=== PATIENT | female | born 1965 | race Hispanic/Latino ===

== ENCOUNTER 2018-01-27 22:00 | Emergency (ER) | payer MEDICAID ==
[2018-01-27 22:01] VITALS: BMI 25.7
[2018-01-27 22:13] VITALS: BP 123/79; PULSE 67; RESP 20; TEMP 98.2; O2SAT 100
[2018-01-27] MEDS ORDERED: Lidocaine 5% Patch TD STA (23:23)
[2018-01-27] MEDS ORDERED: Lidocaine 5% Patch TD ONE (23:29)
--- NOTE | 2018-01-28 00:02 | C.PDOC ---
History Of Present Illness 52 year old female with PMHx of back problems, muscle and nerve damage form the waist down presents to the ED c/o constipation and abdominal pain. Patient states she has not had a bowel movement since Thursday. Patient states that due to her pain and not being able to follow with pain management she has been self medicating. 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 Patient is also requesting detox, states she wants to stop using. Patient denies fever, chills, nausea, vomit, diarrhea, weakness, numbness. Time Seen by Provider: 01/27/18 22:39 Chief Complaint (Nursing): Abdominal Pain History Per: Patient History/Exam Limitations: no limitations Onset/Duration Of Symptoms: Days Current Symptoms Are (Timing): Still Present Location Of Pain/Discomfort: Diffuse Radiation Of Pain To:: None Quality Of Discomfort: "Pain" Associated Symptoms: Constipation. denies: Nausea, Vomiting, Diarrhea, Loss Of Appetite Alleviating Factors: None Last Bowel Movement: Days Ago (Thursday) Recent travel outside of the [place]: No Additional History Per: Patient Abnormal Vaginal Bleeding: No Past Medical History Reviewed: Historical Data, Nursing Documentation, Vital Signs Vital Signs: Last Vital Signs Temp 98.2 F 01/27/18 22:11 Pulse 67 01/27/18 22:11 Resp 20 01/27/18 22:11 BP 123/79 01/27/18 22:11 Pulse Ox 100 01/28/18 00:59 - Medical History PMH: Arthritis, Asthma, Back Problems Other Surgeries: back surgery 2002 Family History: States: Unknown Family Hx - Social History Hx Tobacco Use: Yes Hx Alcohol Use: No Hx Substance Use: Yes (HEROIN) - Immunization History Hx Tetanus Toxoid Vaccination: No Hx Influenza Vaccination: No Hx Pneumococcal Vaccination: No Review Of Systems Constitutional: Negative for: Fever, Chills Respiratory: Negative for: Cough, Shortness of Breath Gastrointestinal: Positive for: Abdominal Pain, Constipation. Negative for: Nausea, Vomiting Musculoskeletal: Positive for: Back Pain, Leg Pain Skin: Negative for: Rash Neurological: Negative for: Weakness, Numbness Psych: Negative for: Depression, Suicidal ideation Physical Exam - Physical Exam Appears: Non-toxic, No Acute Distress Skin: Normal Color, Warm, Dry, No Rash Head: Atraumatic, Normacephalic Eye(s): bilateral: Normal Inspection Oral Mucosa: Moist Throat: No Erythema, No Exudate Neck: Normal ROM, No Midline Cervical Tenderness, No Paracervical Tenderness, Supple Chest: Symmetrical, No Tenderness Cardiovascular: Rhythm Regular, No Friction Rub, No Murmur Respiratory: Normal Breath Sounds, No Rales, No Rhonchi, No Wheezing Gastrointestinal/Abdominal: Soft, Tenderness (diffuse), No Guarding, No Rebound Back: No Vertebral Tenderness, Paraspinal Tenderness (lumbar) Extremity: Normal ROM, Tenderness (left buttock), No Capillary Refill, No Swelling Neurological/Psych: Oriented x3, Normal Speech, Normal Motor, Normal Sensation Gait: Steady ED Course And Treatment O2 Sat by Pulse Oximetry: 100 (ON RA) Pulse Ox Interpretation: Normal Medical Decision Making Medical Decision Making: Plan: * Tylenol 975 mg PO * Valium 5 mg PO * Lidoderm 1 ea TD Disposition - Disposition Referrals: Ravinder Jay MD [Non-Staff] - Disposition: HOME/ ROUTINE Disposition Time: 00:57 Condition: STABLE Additional Instructions: Follow up with the medical doctor within 1-2 days without fail. Return if worsened. Prescriptions: Acetaminophen [Tylenol] 325 mg PO Q6 PRN #30 tab PRN Reason: Pain, Mild (1-3) diaZEpam [Valium] 5 mg PO TID #21 tab traMADol [Ultram] 50 mg PO Q6 PRN #10 tab PRN Reason: Pain Instructions: Radiculopathy Forms: [facility] ([place]se) - Clinical Impression Clinical Impression: Lumbar radiculopathy - PA / LEGAL PROCESS SPECIALIST / Resident Statement MD/DO has reviewed & agrees with the documentation as recorded. - Scribe Statement The provider has reviewed the documentation as recorded by the Scribe Julio Cséar Diaz All medical record entries made by the Scribe were at my direction and personally dictated by me. I have reviewed the chart and agree that the record accurately reflects my personal performance of the history, physical exam, medical decision making, and the department course for this patient. I have also personally directed, reviewed, and agree with the discharge instructions and disposition.
== END 2018-01-28 01:03 | disposition home or self-care (01) ==
LOC: C.ER 22:00
DX: M54.16 Radiculopathy, lumbar region (principal)